=== PATIENT | male | born 1965 | race Caucasian/White ===

== ENCOUNTER 2016-11-29 12:48 | Emergency (ER) | payer SELFPAY ==
[~2016-11-29] VITALS: Ht 180.3 cm; Wt 117.9 kg
[~2016-11-29 12:48] MED LIST: ASPIRIN
[2016-11-29 13:32] VITALS: BP 135/79
--- NOTE | 2016-11-29 14:13 | NUR ---
Patient to OF1.
--- NOTE | 2016-11-29 14:16 | NUR ---
Dr. Barfield evaluating patient at bedside.
--- NOTE | 2016-11-29 14:18 | NUR ---
PATIENT PRESENTS TO ED WITH LEFT KNEE PAIN S/P NO FALL, HEARD A POP AND WAS UNABLE TO WALK. DENIES N/V/D; SKIN IS PINK/WARM/DRY; AAOX4 WITH WHEELCHAIR; LUNGS CLEAR BL; HR EVEN AND REGULAR; PT DENIES ANY FEVER, CP, SOB, OR COUGH AT THIS TIME; PATIENT STATES PAIN OF 6/10 AT THIS TIME; VSS; PATIENT POSITIONED FOR COMFORT; HOB ELEVATED; BEDRAILS UP X2; BED DOWN. ER MD MADE AWARE OF PT STATUS.
[2016-11-29] MEDS ORDERED: HYDROcodone/APAP 10/325 MG 1 TAB TAB PO PRN (14:25)
[2016-11-29 14:33] VITALS: BP 135/79
--- NOTE | 2016-11-29 14:34 | NUR ---
Patient discharged with v/s stable. Written and verbal after care instructions given and explained. Patient alert, oriented and verbalized understanding of instructions. Ambulatory with to car. All questions addressed prior to discharge. ID band removed. Patient advised to follow up with PMD. Rx of NORCO given. Patient educated on indication of medication including possible reaction and side effects. Opportunity to ask questions provided and answered.
== END 2016-11-29 14:34 | disposition home or self-care (01) ==
LOC: MED 12:50
DX: M25.562 Pain in left knee (principal); H54.41 Blindness, right eye, normal vision left eye

== ENCOUNTER 2018-10-06 19:04 | Inpatient (IN) | payer MEDICAID ==
[~2018-10-06] VITALS: Ht 182.9 cm; Wt 120.7 kg
--- NOTE | 2018-10-06 19:15 | NUR ---
Patient transferred to bed 10 via wheelchair by tech. RN evaluating patient at bedside.
--- NOTE | 2018-10-06 19:16 | NUR ---
52 YO MALE BIB SELF. PT STATES TO HAVE HAD PAIN, REDNESS AND SWELLING TO LEFT LEG X6 MONTHS. PAIN IN LEFT LEG 10/10. LEFT LEG HAS REDNESS FROM FOOT TO KNEE, SWELLING AND SCABS. PEDAL PULSES EQUAL BILATERALLY. CMS INTACT. ER MD MADE AWARE OF PT STATUS. WILL CONTINUE TO MONITOR.
--- NOTE | 2018-10-06 19:18 | NUR ---
Dr. Diggs evaluating patient at bedside.
[2018-10-06 19:20] VITALS: BP 103/67
[2018-10-06] MEDS ORDERED: NACL 0.9% 1,000 ML IV SCH (19:21)
[2018-10-06] MEDS ORDERED: IBUPROFEN 800 MG TAB PO ONE (19:25)
[2018-10-06] MEDS ORDERED: ACETAMINOPHEN EXTRA STRENGTH 500 MG TAB PO ONE (19:25)
[2018-10-06] MEDS ORDERED: KETOROLAC 30 MG/ML VIAL IVP ONE (19:25)
[2018-10-06] MEDS ORDERED: PIPERACILLIN/TAZOBACTAM 3.375 GM in DEXTROSE 5% 50 ML IV ONE (19:40)
[2018-10-06] MEDS ORDERED: CLINDAMYCIN 900 MG in DEXTROSE 5% 100 ML IV ONE (19:40)
--- NOTE | 2018-10-06 19:46 | NUR ---
LAB AT BEDSIDE.
--- NOTE | 2018-10-06 20:14 | NUR ---
smog technician at bedside.
[2018-10-06 20:19] LABS: MEAN CORPUSCULAR HGB CONC 33 g/dL (33-37); RED BLOOD CELL COUNT(AUTO) 5.51 MIL/uL (4.20-6.10)
[2018-10-06] MEDS ORDERED: PIPERACILLIN/TAZOBACTAM 3.375 GM VIAL IV ONE (20:21)
[2018-10-06 20:33] LABS: HEMATOCRIT 48.9 % (36-52); MEAN CORPUSCULAR HEMOGLOBIN 29 pg (27-31); MEAN CORPUSCULAR VOLUME 88.7 fL (80-94); PLATELET COUNT (AUTO) 170 K/uL (140-450); RED CELL DISTRIBUTION WIDTH 14.1 % (11.6-13.7)
[2018-10-06 20:40] LABS: ALBUMIN 3.7 g/dL (3.4-5.0); CREATININE 1.2 mg/dL (0.7-1.3)
[2018-10-06] MEDS ORDERED: NACL 0.9% 2,500 ML IV ONE (20:50)
[2018-10-06] MEDS ORDERED: CLINDAMYCIN 900 MG/6 ML VIAL IV ONE (20:53)
--- NOTE | 2018-10-06 20:57 | NUR ---
UA SENT TO LAB
[2018-10-06] MEDS ORDERED: DEXT 5% /NACL 0.9% 1,000 ML IV ONE (21:00)
[2018-10-06] MEDS ORDERED: DOCUSATE SODIUM 100 MG GELCAP PO PRN (21:00)
[2018-10-06] MEDS ORDERED: ONDANSETRON 4 MG/2 ML VIAL IM/IVP PRN (21:00)
--- NOTE | 2018-10-06 21:35 | NUR ---
Patient noted to have existing wounds upon arrival to ER. Photos taken of wound and placed in chart. Physician informed.
[2018-10-06 21:38] LABS: BARBITURATE, URINE NEG. ng/ml (NEG <=200); BENZODIAZEPINE, URINE NEG. ng/mL (NEG <=200); CANNABINOID, URINE NEG. ng/mL (NEG <=50); COCAINE, URINE POS. ng/mL (NEG <=300); OPIATE, URINE NEG. ng/mL (NEG <=2000); PHENCYCLIDINE SCREEN,URINE NEG. ng/mL (NEG <=25)
[2018-10-06 21:51] LABS: CHOL/HDL RATIO 2.5 (1-4.5); FREE T4 (FREE THYROXINE) 0.95 ng/dL (0.76-1.46); MAGNESIUM 1.8 mg/dL (1.8-2.4); THYROID STIMULATING HORMONE 1.01 uIU/mL (0.34-3.74)
[2018-10-06 22:02] LABS: LYMPHOCYTES % (MANUAL) 3 % (20-46); MONOCYTES % (MANUAL) 3 % (5-12)
--- NOTE | 2018-10-06 22:10 | NUR ---
PT ARRIVED AT UNIT VIA GURNEY, PT DROWSY, STABLE, NO DISTRESS NOTED, PT AMBULATED TO BED WITH ASSISTANCE, REPORT RECEIVED FROM ER NURSE VEL RAPHAEL, IV TO R HAND 18G PATENT, INTACT RUNNING BOLUS NS AT THIS MOMENT, INFUSING WELL, PT ON ROOM AIR, NO SOB, V/S TAKEN, WNL, PT STILL RUNNING A SLIGHT FEVER OF 100.5, INITIATED COOLING METHODS, INITIAL ASSESSMENT DONE, ALL SAFETY PRECAUTION MET, ORIENT PT TO ROOM, BED, CALL LIGHT, PT WAS TOO DROWSY TO REPLY, MRSA SWAB TAKEN, PT SLEEPING, NO DISTRESS NOTED, CALL LIGHT WITHIN REACH, WILL CONTINUE TO MONITOR.
--- NOTE | 2018-10-06 22:10 | NUR ---
Patient will be admitted to care of DR. FLORES. Admited to TELE. Will go to room 112B. Belongings list completed. Report to HOMAR RAPHAEL.
[2018-10-06] MEDS ORDERED: MECLIZINE 25 MG TAB PO PRN (22:35)
[2018-10-06] MEDS ORDERED: KETOROLAC 30 MG/ML VIAL IM PRN (22:35)
[2018-10-06 22:40] VITALS: BP 104/65
--- NOTE | 2018-10-06 22:40 | NUR ---
UNABLE TO ASK ADMISSION QUESTIONS, PT WOULD NOT ANSWER, KEEPS FALLING ASLEEP. NO DISTRESS NOTED, CALL LIGHT WITHIN REACH, WILL CONTINUE TO MONITOR.
--- NOTE | 2018-10-06 23:05 | NUR ---
PT LEFT UNIT TO CT, IN STABLE CONDITION, PT STILL DROWSY, NO DISTRESS NOTED.
--- NOTE | 2018-10-06 23:40 | NUR ---
PT CAME BACK FROM CT IN STABLE, CONDITION, NO DISTRESS NOTED, PT SLEEPING, CALL LIGHT WITHIN REACH, WILL CONTINUE TO MONITOR.
[2018-10-06] MEDS: DEXT 5% /NACL 0.9% 1,000 ML IV SCH (23:43)
[2018-10-07] VITALS: BP 110/71
[2018-10-07] MEDS: NACL 0.9% 1,000 ML IV SCH ×2 (00:15→15:38)
--- NOTE | 2018-10-07 00:42 | NUR ---
RADIOLOGY CALLED REGARDING RESULT FOR HEAD CT, STATED THAT IT IS NEGATIVE FOR STROKE, NOTIFIED DR. ALEXANDRA DR. STATED UNDERSTANDING, PT SLEEPING, NO DISTRESS NOTED, CALL LIGHT WITHIN REACH, WILL CONTINUE TO MONITOR.
[2018-10-07 04:00] VITALS: BP_SYST 103; BP_SYST 96; BP_DIAS 54; BP_DIAS 65
--- NOTE | 2018-10-07 04:10 | NUR ---
CHECKED ON PT, PT SLEEPING, NO DISTRESS NOTED, CALL LIGHT WITHIN REACH, WILL CONTINUE TO MONITOR
[2018-10-07] MEDS ORDERED: PIPERACILLIN/TAZOBACTAM 3.375 GM VIAL IV ONE (05:55)
[2018-10-07] MEDS: PIPER/TAZO 3.375GM/D5W PREMIX 50 ML IV SCH ×3 (06:14→17:49)
[2018-10-07] MEDS: DEXT 5% /NACL 0.9% 1,000 ML IV SCH ×2 (06:16→09:58)
[2018-10-07 06:28] LABS: APPEARANCE,URINE CLEAR (CLEAR); BILIRUBIN,URINE NEGATIVE (NEGATIVE); BLOOD, URINE NEGATIVE (NEGATIVE); COLOR,URINE YELLOW (YELLOW); LEUKOCYTE ESTERASE ,URINE NEGATIVE (NEGATIVE); NITRITE, URINE NEGATIVE (NEGATIVE); UGLUCOSE NEGATIVE (NEGATIVE)
--- NOTE | 2018-10-07 07:03 | NUR ---
TALKED TO DR. MORRIS REGARDING AEROBIC/ANAEROBIC CULTURE ORDERED, PT WOUND IS NOT OPEN, NO LESION AND NO DRAINAGE, STATED UNDERSTANDING TO NOT COLLECT CULTURE.
--- NOTE | 2018-10-07 07:04 | NUR ---
PT SLEEPING WHOLE SHIFT, UNABLE TO ASSESS ORTHOSTATIC BP.
--- NOTE | 2018-10-07 07:21 | NUR ---
ENDORSED PT TO DAY SHIFT NURSE VAN RAPHAEL, PT STABLE, NO DISTRESS NOTED, CALL LIGHT WITHIN REACH.
--- NOTE | 2018-10-07 07:22 | NUR ---
RECEIVED REPORT FROM VESSEL OPERATOR NURSE. PT IN STABLE CONDITION. RESPIRATIONS EVEN AND UNLABORED. ROOM AIR. IV INTACT AND PATENT. REVIEWED CARE PLAN WITH PT, PT VERBALIZED UNDERSTANDING OF CARE PLAN. SAFETY MEASURES IN PLACE. CALL LIGHT AT BEDSIDE. BED IN LOW POSITION. WILL CONTINUE TO MONITOR.
--- NOTE | 2018-10-07 07:37 | NUR ---
PATIENT HAS BEEN SCREENED AND CATEGORIZED MODERATE NUTRITION RISK. PATIENT WILL BE SEEN WITHIN 3-5 DAYS OF ADMISSION. 10/08/18-10/10/18 SPEEDY BEE MS, RDN
[2018-10-07 07:44] LABS: BASOPHILS % (AUTO) 0.1 % (0.0-2.0); EOSINOPHILS % (AUTO) 0.2 % (0.0-4.0); HEMATOCRIT 43.2 % (36-52); HEMOGLOBIN 14.1 g/dL (12.0-18.0); LYMPHOCYTES % (AUTO) 6.1 % (20.5-51.1); MAGNESIUM 1.8 mg/dL (1.8-2.4); MEAN CORPUSCULAR HEMOGLOBIN 29 pg (27-31); MEAN CORPUSCULAR HGB CONC 33 g/dL (33-37); MEAN CORPUSCULAR VOLUME 89.3 fL (80-94); MONOCYTES # (AUTO) 0.7 K/uL (0.8-1.0); MONOCYTES % (AUTO) 4.4 % (1.7-9.3); NEUTROPHILS # (AUTO) 14.3 K/uL (1.8-7.7); NEUTROPHILS % (AUTO) 89.2 % (42.2-75.2); PHOSPHORUS 3.4 mg/dL (2.5-4.9); PLATELET COUNT (AUTO) 161 K/uL (140-450); RED BLOOD CELL COUNT(AUTO) 4.84 MIL/uL (4.20-6.10); RED CELL DISTRIBUTION WIDTH 14.3 % (11.6-13.7)
[2018-10-07 07:49] LABS: ANION GAP 9.1 (8-16); CARBON DIOXIDE 29.5 mmol/L (21-32); CREATININE 1.2 mg/dL (0.7-1.3); POTASSIUM 3.6 mmol/L (3.5-5.1)
[2018-10-07 08:00] VITALS: BP_SYST 127; BP_SYST 143; BP_DIAS 67; BP_DIAS 78
--- NOTE | 2018-10-07 08:00 | NUR ---
ASSISTED PT WITH BEDPAN, PT TOLERATED WELL. WILL CONTINUE TO MONITOR.
--- NOTE | 2018-10-07 09:00 | NUR ---
GAVE ORDERED DUE MEDICATIONS, PT TOLERATED WELL. WILL CONTINUE TO MONITOR.
[2018-10-07] MEDS ORDERED: LACTULOSE 20 GM/30 ML UDC PO SCH (09:30)
[2018-10-07] MEDS: SODIUM PHOS / POTASSIUM PHOS 1 PKT PDR PO SCH ×3 (09:57→17:25)
[2018-10-07] MEDS: HYDROcodone/APAP 7.5/325 MG 1 TAB PO PRN (10:09)
--- NOTE | 2018-10-07 11:00 | NUR ---
PT LYING IN BED SLEEPING. RESPIRATIONS EVEN AND UNLABORED. WILL CONTINUE TO MONITOR.
[2018-10-07 12:00] VITALS: BP 112/63
--- NOTE | 2018-10-07 12:00 | NUR ---
PT VISITING WITH FAMILY AT THIS TIME. PT STABLE CONDITION. WILL CONTINUE TO MONITOR.
--- NOTE | 2018-10-07 14:00 | NUR ---
PT LYING IN BED SLEEPING RESPIRATIONS EVEN AND UNLABORED. BED IN LOW POSITION. WILL CONTINUE TO MONITOR.
[2018-10-07 16:00] VITALS: BP 127/77
--- NOTE | 2018-10-07 16:00 | NUR ---
VITALS STABLE. PT SLEEPING AT THIS TIME. WILL CONTINUE TO MONITOR. BED IN LOW POSITION.
--- NOTE | 2018-10-07 17:43 | NUR ---
ASSISTED WITH REPOSITIONING. PT TOLERATED WELL. BED IN LOW POSITION. WILL CONTINUE TO MONITOR.
[2018-10-07] MEDS: ACETAMINOPHEN 325 MG TAB PO PRN (19:00)
--- NOTE | 2018-10-07 19:17 | NUR ---
RECEIVED REPORT FROM DAY SHIFT NURSE VAN, AT PT BEDSIDE. PT IN IN STABLE CONDITION. PT IS ASLEEP IN BED, EASILY AROUSABLE. PT IS ON RA WITH RESPIRATIONS EVEN AND UNLABORED. IV ACCESS IN R HAND 18G WITH IVF RUNNING PER MD ORDERS. IV IS PATENT AND INTACT. PT HAS CELLULITIS TO LLE. SKIN IS INTACT. PT HAS NO C/O PAIN AT THIS TIME. BED IS LOCKED, LOW POSITION WITH SIDE RAILS UP X2. BOARD UPDATED. CALL LIGHT IS WITHIN REACH. WILL CONTINUE TO MONITOR.
--- NOTE | 2018-10-07 19:17 | NUR ---
GAVE REPORT TO NIGHT NURSE FOR CONTINUITY OF CARE. PT IN STABLE CONDITION.
[2018-10-07 20:00] VITALS: BP 136/81
--- NOTE | 2018-10-07 22:30 | NUR ---
PT PULLED OUT IV. CANULA INTACT. NEW IV ACCESS STARTED R AC 22G. PT TOLERATED WELL. IV FLUSHES WELL. IVF RESUMED.
[2018-10-08] VITALS: BP 103/67
[2018-10-08] MEDS: NACL 0.9% 1,000 ML IV SCH ×4 (00:15→22:55)
--- NOTE | 2018-10-08 00:15 | NUR ---
NEW BAG OF IVF STARTED. PT VS STABLE. NO S/SX OF DISTRESS. WILL CONTINUE TO MONITOR.
[2018-10-08] MEDS: PIPER/TAZO 3.375GM/D5W PREMIX 50 ML IV SCH ×5 (00:23→23:07)
--- NOTE | 2018-10-08 00:24 | NUR ---
ADMINISTERED SCHEDULED MEDICATION. PT TOLERATING WELL. NO S/SX OF DISTRESS. WILL CONTINUE TO MONITOR.
--- NOTE | 2018-10-08 00:55 | NUR ---
PT WENT INTO SVT WITH HR 176. CHECKED ON PT, PT ASLEEP AND EASILY AROUSABLE BP 108/73. CALLED DR. DELEON WILL COME TO CHECK ON PT.
--- NOTE | 2018-10-08 03:40 | NUR ---
PT STILL IN SVT. INFORMED DR DELEON, WILL COME TO SEE PT.
[2018-10-08 04:00] VITALS: BP 121/73
[2018-10-08] MEDS ORDERED: NACL 0.9% 500 ML IV ONE (04:05)
--- NOTE | 2018-10-08 04:13 | NUR ---
STARTED ORDERED IVF BOLUS. PT ASLEEP IN BED. NO S/SX OF DISTRESS. WILL CONTINUE TO MONITOR.
--- NOTE | 2018-10-08 05:24 | NUR ---
ADMINISTERED SCHEDULED MEDICATION. PT SLEEPING COMFORTABLY IN BED. NO SIGNS OR SYMPTOMS OF DISTRESS. WILL CONTINUE TO MONITOR.
--- NOTE | 2018-10-08 06:20 | NUR ---
PT REFUSED LAB DRAW.
--- NOTE | 2018-10-08 06:36 | NUR ---
NEW BAG OF IVF STARTED.
--- NOTE | 2018-10-08 07:15 | NUR ---
ENDORSED PT TO DAY SHIFT NURSE FOR CONTINUITY OF CARE. PT IN STABLE CONDITION.
--- NOTE | 2018-10-08 07:16 | NUR ---
RECEIVED BEDSIDE REPORT FROM ACCOUNTS PAYABLE PROCESSOR. PT SLEEPING COMFORTABLY. RESPIRATIONS EVEN AND UNLABORED. SKIN WARM, DRY, AND COLOR WNL. PLAN OF CARE REVIEWED. ALL SAFETY MEASURES IN PLACE. NO NEEDS AT THIS TIME.
[2018-10-08 08:00] VITALS: BP 102/60
[2018-10-08] MEDS: SODIUM PHOS / POTASSIUM PHOS 1 PKT PDR PO SCH ×3 (09:31→18:02)
--- NOTE | 2018-10-08 09:33 | NUR ---
ADMINISTERED SCHEDULED MEDICATION. PT TOLERATED WELL. PT WENT BACK TO SLEEP. NO NEEDS AT THIS MOMENT.
--- NOTE | 2018-10-08 09:39 | NUR ---
EKG NOT ABLE TO BE TRANSMITTED. PLACED HARDCOPY EKG INSIDE PT FILE.
[2018-10-08 12:00] VITALS: BP 102/60
--- NOTE | 2018-10-08 12:22 | NUR ---
SCHEDULED MEDICATIONS ADMINISTERED. PT TOLERATED WELL. PT SLEEPING BUT AROUSABLE. NO NEEDS AT THIS TIME. SITTING UP NOW AND EATING LUNCH. IV SITE WNL.
--- NOTE | 2018-10-08 14:30 | NUR ---
PT'S SISTER SHANICE BAZZI AT BEDSIDE. PHONE NUMBER GIVEN . PATIENT GIVES VERBAL APPROVAL TO DISCLOSE MEDICAL INFORMATION TO SHANICE. SHANICE VERBALIZES CONCERN AND SUPPORT FOR PATIENT. SHANICE STATES SHE IS AVAILABLE FOR SUPPORT NEEDED FOR PATIENT.
--- NOTE | 2018-10-08 15:00 | NUR ---
DR. WAGONER AT BEDSIDE WITH FAMILY MEMBERS TO DISCUSS PATIENT CONDITION AND PLAN OF CARE.
[2018-10-08 16:00] VITALS: BP 120/75
--- NOTE | 2018-10-08 18:07 | NUR ---
ADMINISTERED SCHEDULED MEDICATIONS. PT TOLERATED WELL. PT WENT BACK TO SLEEPING COMFORTABLY. IV SITE WNL.
[2018-10-08] MEDS: ACETAMINOPHEN 325 MG TAB PO PRN (18:22)
--- NOTE | 2018-10-08 18:25 | NUR ---
PT TEMPERATURE 100.8. ADMINISTERED PRN TYLENOL. PT COMPLAINED OF ITCHING ON THE LEFT LEG. ADMINISTERED IVP BENADRYL PER MD ORDER. PT TOLERATED WELL. IV SITE WNL. PT WENT BACK TO SLEEPING COMFORTABLY.
[2018-10-08] MEDS ORDERED: diphenhydrAMINE 50 MG/ML VIAL IVP SCH (18:30)
--- NOTE | 2018-10-08 19:22 | NUR ---
ENDORSED PT TO FRONT DESK LEAD NURSE. PT STABLE. FAMILY AT BEDSIDE.
--- NOTE | 2018-10-08 19:22 | NUR ---
RECEIVED REPORT FROM DAY SHIFT NURSE ALEXANDER, AT PT BEDSIDE. PT IN IN STABLE CONDITION. PT IS ASLEEP IN BED, EASILY AROUSABLE. PT IS ON RA WITH RESPIRATIONS EVEN AND UNLABORED. IV ACCESS IN R AC 22G WITH IVF RUNNING PER MD ORDERS. IV IS PATENT AND INTACT. PT HAS CELLULITIS TO LLE. SKIN IS INTACT. PT HAS NO C/O PAIN AT THIS TIME. BED IS LOCKED, LOW POSITION WITH SIDE RAILS UP X2. BOARD UPDATED. CALL LIGHT IS WITHIN REACH. WILL CONTINUE TO MONITOR.
[2018-10-08 20:00] VITALS: BP 107/53
--- NOTE | 2018-10-08 21:43 | NUR ---
PT ASLEEP IN BED. NO SIGNS OR SYMPTOMS OF DISTRESS. WILL CONTINUE TO MONITOR.
--- NOTE | 2018-10-08 22:55 | NUR ---
NEW BAG OF IVF STARTED.
--- NOTE | 2018-10-08 23:07 | NUR ---
ADMINISTERED SCHEDULED ANTIBIOTIC. PT IS SLEEPING COMFORTABLY IN BED. NO S/SX OF DISTRESS. WILL CONTINUE TO MONITOR.
[2018-10-09] VITALS: BP 105/55
--- NOTE | 2018-10-09 04:01 | NUR ---
PT SLEEPING COMFORTABLY IN BED. NO SIGNS OR SYMPTOMS OF DISTRESS. WILL CONTINUE TO MONITOR.
[2018-10-09] MEDS: HYDROcodone/APAP 7.5/325 MG 1 TAB PO PRN (04:47)
--- NOTE | 2018-10-09 04:47 | NUR ---
PT C/O PAIN AND ITCHINESS IN LEG. BENADRYL AND NORCO GIVEN. PT TOLERATED WELL. NO SIGNS OR SYMPTOMS OF DISTRESS. WILL CONTINUE TO MONITOR.
[2018-10-09] MEDS: PIPER/TAZO 3.375GM/D5W PREMIX 50 ML IV SCH ×2 (05:21→11:48)
--- NOTE | 2018-10-09 05:22 | NUR ---
ADMINISTERED SCHEDULED MEDICATION. PT SLEEPING COMFORTABLY IN BED. NO SIGNS OR SYMPTOMS OF DISTRESS. WILL CONTINUE TO MONITOR.
[2018-10-09] MEDS: NACL 0.9% 1,000 ML IV SCH (06:06)
--- NOTE | 2018-10-09 06:06 | NUR ---
NEW BAG OF IVF STARTED.
[2018-10-09 07:09] LABS: BASOPHILS % (AUTO) 0.2 % (0.0-2.0); EOSINOPHILS # (AUTO) 0.1 K/uL (0-0.4); HEMATOCRIT 41.8 % (36-52); HEMOGLOBIN 13.8 g/dL (12.0-18.0); LYMPHOCYTES # (AUTO) 1.7 K/uL (2.0-11.5); LYMPHOCYTES % (AUTO) 16.1 % (20.5-51.1); MEAN CORPUSCULAR HEMOGLOBIN 29 pg (27-31); MEAN CORPUSCULAR HGB CONC 33 g/dL (33-37); MEAN CORPUSCULAR VOLUME 88.3 fL (80-94); MONOCYTES # (AUTO) 1.1 K/uL (0.8-1.0); MONOCYTES % (AUTO) 10.5 % (1.7-9.3); NEUTROPHILS # (AUTO) 7.7 K/uL (1.8-7.7); NEUTROPHILS % (AUTO) 72.2 % (42.2-75.2); PLATELET COUNT (AUTO) 173 K/uL (140-450); RED BLOOD CELL COUNT(AUTO) 4.73 MIL/uL (4.20-6.10); RED CELL DISTRIBUTION WIDTH 14.2 % (11.6-13.7); WHITE BLOOD COUNT (AUTO) 10.6 K/uL (4.8-10.8)
[2018-10-09 07:11] LABS: ANION GAP 11.1 (8-16); CARBON DIOXIDE 25.9 mmol/L (21-32)
--- NOTE | 2018-10-09 07:11 | NUR ---
ENDORSED PT TO DAY SHIFT NURSE FOR CONTINUITY OF CARE. PT IN STABLE CONDITION.
[2018-10-09 07:16] LABS: MAGNESIUM 2.1 mg/dL (1.8-2.4); PHOSPHORUS 2.7 mg/dL (2.5-4.9)
--- NOTE | 2018-10-09 07:40 | NUR ---
PATIENT WAS SLEEPING COMFORTABLY. RESPIRATION EVEN, UNLABOR ON ROOM AIR. SKIN DRY AND WARM. IV PATENT AND INTACT. DENIED PAIN AT THIS TIME. PLAN OF CARE WAS DISCUSSED WITH PATIENT. BED AT LOW POSITION, SIDE RAILS UP. CALL LIGHT WITHIN REACH.
[2018-10-09 08:00] VITALS: BP 110/72
--- NOTE | 2018-10-09 08:56 | NUR ---
PATIENT WAS SLEEPING COMFORTABLY. RESPIRATION EVEN, UNLABOR ON ROOM AIR. NO DISTRESS NOTED AT THIS TIME
[2018-10-09] MEDS ORDERED: [UNRECOGNIZED DRUG - CODE] PO (09:41)
[2018-10-09] MEDS ORDERED: LACT10CA1 PO (09:41)
[2018-10-09] MEDS ORDERED: PETROLATUM WHITE 30 GM TUBE TP SCH (10:30)
--- NOTE | 2018-10-09 10:30 | NUR ---
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
--- NOTE | 2018-10-09 11:27 | NUR ---
DISCHARGE INSTRUCTION AND PRESCRIPTION WERE GIVEN TO THE PATIENT. PATIENT VERBALIZED UNDERSTANDING.
--- NOTE | 2018-10-09 12:20 | NUR ---
IV WAS REMOVED, CATHETER INTACT, NO ACTIVE BLEEDING SEEN. PATIENT REFUSED FLU AND PNEUMONIA VACCINES.
--- NOTE | 2018-10-09 14:00 | NUR ---
PATIENT WAS ESCORTED OUT IN WHEELCHAIR BY STAFF. ALL BELONGINGS WERE TAKEN WITH THE PATIENT. ID BAND WAS REMOVED. PATIENT WAS STABLE AT THIS TIME
[2018-10-10 11:52] LABS: T4 (THYROXINE) 4.6 ug/dL (4.5 - 12.0)
== END 2018-10-09 14:00 | disposition home or self-care (01) | DRG 816 ==
LOC: MED 19:04 → MTU 21:03
PROVIDERS: ADMIT General Practice; ATTEND General Practice
DX: T40.5X1A Poisoning by cocaine, accidental (unintentional), initial encounter (principal); R65.20 Severe sepsis without septic shock; G92 Toxic encephalopathy; A41.9 Sepsis, unspecified organism; J18.9 Pneumonia, unspecified organism; E87.8 Other disorders of electrolyte and fluid balance, not elsewhere classified; E87.1 Hypo-osmolality and hyponatremia; L03.116 Cellulitis of left lower limb; I87.8 Other specified disorders of veins; R73.9 Hyperglycemia, unspecified; E83.39 Other disorders of phosphorus metabolism; E78.5 Hyperlipidemia, unspecified; F14.10 Cocaine abuse, uncomplicated; F15.10 Other stimulant abuse, uncomplicated; F43.9 Reaction to severe stress, unspecified; E66.01 Morbid (severe) obesity due to excess calories; M17.12 Unilateral primary osteoarthritis, left knee; M19.072 Primary osteoarthritis, left ankle and foot; J32.9 Chronic sinusitis, unspecified; Z59.0 Homelessness; Z68.36 Body mass index [BMI] 36.0-36.9, adult; Y92.89 Other specified places as the place of occurrence of the external cause
CPT/HCPCS: 36415; 70450; 71045; 73590; 73700; 76536; 80048; 80053; 80305; 81003; 82140; 82150; 83036; 83605; 83690; 83735; 83880; 84100; 84436; 84439; 84443; 84479; 84484; 85025; 85610; 85730; 87040; 87081; 87086; 93005; 93880; 93922; 93925; 93971; 96365; 96367; 96375; 97116; 97530; 99291; G0482; J1200; J1885; J2543; J3490; J7030; J7042; J7060; Q0092; Q0163